=== PATIENT | female | born 1995 | race Caucasian/White ===

== ENCOUNTER 2017-07-20 16:18 | Emergency (ER) | payer OTHER ==
--- NOTE | 2017-07-20 16:31 | PDOC ---
History of Present Illness - General History Source: Patient, Old Records Exam Limitations: No Limitations - History of Present Illness Initial Comments: 07/20/17 16:41 The patient is a 22 year old female with no significant past medical history who presents to the emergency department with stomach pain for 3 days and dysuria for 1 day. The patient states that her stomach pain was associated with one episode of vomiting yesterday. She notes that her dysuria is accompanied by foul smelling urine. She denies any back pain or fever. <Brian Muñoz - Last Filed: 07/20/17 16:41> <Heydi Day - Last Filed: 07/22/17 08:47> - General Chief Complaint: Urinary Problem Stated Complaint: POSSIBLE UTI Time Seen by Provider: 07/20/17 16:21 Past History <Brian Muñoz - Last Filed: 07/20/17 16:41> - Immunization History Immunization Up to Date: Yes - Suicide/Smoking/Psychosocial Hx Smoking History: Current every day smoker Have you smoked in the past 12 months: No Number of Cigarettes Smoked Daily: 1 'Breaking Loose' booklet given: 02/18/16 Hx Alcohol Use: No Drug/Substance Use Hx: No <Heydi Day - Last Filed: 07/22/17 08:47> - Past Medical History Allergies/Adverse Reactions: Allergies Allergy/AdvReac Type Severity Reaction Status Date / Time strawberry Allergy Mild Verified 07/20/17 16:20 apple Allergy Verified 07/20/17 16:20 Home Medications: Ambulatory Orders Cephalexin Monohydrate [Keflex -] 500 mg PO BID #14 capsule 07/20/17 Review of Systems - Review of Systems Able to Perform ROS?: Yes Comments:: 07/20/17 16:41 GENERAL/CONSTITUTIONAL: No fever or chills. No weakness. HEAD, EYES, EARS, NOSE AND THROAT: No change in vision. No ear pain or discharge. No sore throat. GASTROINTESTINAL: (+) Vomiting. No diarrhea or constipation. GENITOURINARY: No dysuria, frequency, or change in urination. CARDIOVASCULAR: No chest pain or shortness of breath. MUSCULOSKELETAL: No joint or muscle swelling or pain. No neck or back pain. SKIN: No rash <Brian Muñoz - Last Filed: 07/20/17 16:41> *Physical Exam - Vital Signs Last Vital Signs Temp Pulse Resp BP Pulse Ox 97.8 F 96 H 16 104/68 98 07/20/17 16:19 07/20/17 16:19 07/20/17 16:19 07/20/17 16:19 07/20/17 16:19 <Brian Muñoz - Last Filed: 07/20/17 16:41> - Physical Exam Comments: GENERAL: Awake, alert, and fully oriented, in no acute distress HEAD: No signs of trauma EYES: PERRLA, EOMI, sclera anicteric, conjunctiva clear ENT: Auricles normal inspection, hearing grossly normal, nares patent, oropharynx clear without exudates. Moist mucosa NECK: Normal ROM, supple, no lymphadenopathy, JVD, or masses LUNGS: Breath sounds equal, clear to auscultation bilaterally. No wheezes, and no crackles HEART: Regular rate and rhythm, normal S1 and S2, no murmurs, rubs or gallops ABDOMEN: Soft, nontender, normoactive bowel sounds. No guarding, no rebound. No masses. No CVAT. EXTREMITIES: Normal range of motion, no edema. No clubbing or cyanosis. No cords, erythema, or tenderness NEUROLOGICAL: Cranial nerves II through XII grossly intact. Normal speech, normal gait SKIN: Warm, Dry, normal turgor, no rashes or lesions noted. <Heydi Day - Last Filed: 07/22/17 08:47> Medical Decision Making - Medical Decision Making Pt treated with keflex. No prior cultures available. Culture pending. Stable for DC home. <Heydi Day - Last Filed: 07/22/17 08:47> *DC/Admit/Observation/Transfer - Attestations Scribe Attestion: 07/20/17 16:41 Documentation prepared by Brian Muñoz, acting as biomedical engineering technician for Heydi Day MD. <Brian Muñoz - Last Filed: 07/20/17 16:41> - Discharge Dispostion Admit: No <Heydi Day - Last Filed: 07/22/17 08:47> Diagnosis at time of Disposition: UTI (urinary tract infection) Qualifiers: Urinary tract infection type: acute cystitis Hematuria presence: without hematuria Qualified Code(s): N30.00 - Acute cystitis without hematuria - Discharge Dispostion Disposition: HOME Condition at time of disposition: Stable - Prescriptions Prescriptions: Cephalexin Monohydrate [Keflex -] 500 mg PO BID #14 capsule - Patient Instructions Printed Discharge Instructions: DI for Urinary Tract Infection (UTI)
[2017-07-20 16:37] VITALS: BP 104/68; PULSE 96; TEMP 97.8; BMI 23.8
[2017-07-20 16:54] LABS: HCG,QUALITATIVE URINE NEGATIVE; PH,URINE 6.5 (4.5-8); URINE APPEARANCE Clear; URINE BILIRUBIN Negative (NEGATIVE); URINE GLUCOSE (UA) Negative (NEGATIVE); URINE KETONE Negative (NEGATIVE); URINE NITRITE Negative (NEGATIVE)
[2017-07-20 16:55] LABS: URINE BLOOD Trace-intact (NEGATIVE); URINE COLOR YELLOW; URINE LEUK ESTERASE TRACE (NEGATIVE); URINE PROTEIN 1+ (NEGATIVE)
[2017-07-20] MEDS ORDERED: CEPHALEXIN MONOHYDRATE 500 MG CAPSULE (UD) PO ONE (17:13)
[2017-07-20] MEDS ORDERED: CEPHALEXIN MONOHYDRATE 500 MG CAPSULE (UD) ONE (17:23)
[2017-07-20 17:30] LABS: URINE WBC 20-40 (0-5)
== END 2017-07-20 17:37 | disposition home or self-care (01) ==
LOC: FER 16:18
DX: N30.00 Acute cystitis without hematuria (principal)
CPT/HCPCS: 81003; 81015; 84703; 87086; 99282-25

== ENCOUNTER 2018-04-19 13:17 | Emergency (ER) | payer OTHER ==
--- NOTE | 2018-04-19 13:32 | PDOC ---
History of Present Illness - General Chief Complaint: Urinary Problem Stated Complaint: UTI? Time Seen by Provider: 04/19/18 13:21 - History of Present Illness Initial Comments: 04/19/18 13:47 Chief complaint: Dysuria, suprapubic discomfort History of present illness: Patient with 2 prior UTIs, most recently 5-6 months ago, similar symptoms. No complications. Resolved with antibiotics. Complains of dysuria, frequency, urgency, suprapubic discomfort for 3 days. Review of systems: No vaginal discharge, itching, or vulvar lesions. On control pills. Last menses 3 weeks ago. No fever/chills, chest pain, shortness of breath, nausea, vomiting, diarrhea, back pain, visual or focal neurologic symptoms. She admits to recent URI which is resolving Past medical history: As noted, uncomplicated UTIs. control pills. Otherwise noncontributory Social/family history reviewed and noncontributory. Monogamous. Physical exam: Alert and oriented well-developed well-nourished no acute distress cheerful and cooperative Afebrile, vital signs normal Abdomen nondistended. Bowel sounds normal. Soft without mass or organomegaly. There is mild tenderness over the bladder in the suprapubic area, without guarding or rebound. There is no CVAT HEENT mild nasal congestion minimal watery nasal discharge. Impression: Probable recurrent UTI, no history of STD and no symptoms suggestive of vaginitis. Plan urinalysis, empiric treatment, and follow-up as needed. Past History - Past Medical History Allergies/Adverse Reactions: Allergies Allergy/AdvReac Type Severity Reaction Status Date / Time strawberry Allergy Mild Verified 07/20/17 16:20 apple Allergy Verified 07/20/17 16:20 Home Medications: Ambulatory Orders Phenazopyridine HCl [Pyridium] 100 - 200 mg PO TID PRN #15 tablet 04/19/18 Sulfamethoxazole/Trimethoprim [Bactrim Ds Tablet] 1 each PO BID #14 tablet 04/19 COPD: No - Immunization History Immunization Up to Date: Yes - Suicide/Smoking/Psychosocial Hx Smoking History: Current every day smoker Have you smoked in the past 12 months: No Number of Cigarettes Smoked Daily: 1 'Breaking Loose' booklet given: 02/18/16 Hx Alcohol Use: No Drug/Substance Use Hx: No Substance Use Type: None Medical Decision Making - Medical Decision Making 04/19/18 14:08 Urinalysis shows sign of UTI, with red and white cells. Empiric antibiotics prescribed. Follow-up recommended. Fully ambulatory and in no significant pain or discomfort upon discharge with friend to follow-up as directed. *DC/Admit/Observation/Transfer Diagnosis at time of Disposition: UTI (urinary tract infection) Qualifiers: Urinary tract infection type: acute cystitis Hematuria presence: with hematuria Qualified Code(s): N30.01 - Acute cystitis with hematuria - Discharge Dispostion Disposition: HOME Condition at time of disposition: Stable Decision to Admit order: No - Prescriptions Prescriptions: Phenazopyridine HCl [Pyridium] 100 - 200 mg PO TID PRN #15 tablet PRN Reason: painful urination/bladder pain Sulfamethoxazole/Trimethoprim [Bactrim Ds Tablet] 1 each PO BID #14 tablet - Referrals - Patient Instructions Printed Discharge Instructions: DI for Urinary Tract Infection (UTI) Additional Instructions: Drink lots of fluids. Cranberry juice good Antibiotic as prescribed. Pyridium for discomfort as needed. This medication may change her urine color to an orange or brown shade. Return to ER if there is fever or severe back pain. Otherwise follow-up with your primary physician or improvement spec in one week. - Post Discharge Activity
[2018-04-19 13:52] LABS: URINE APPEARANCE Turbid; URINE BILIRUBIN 2+ (NEGATIVE); URINE COLOR Red; URINE GLUCOSE (UA) Trace (NEGATIVE); URINE KETONE 1+ (NEGATIVE); URINE LEUK ESTERASE 1+ (NEGATIVE); URINE NITRITE Negative (NEGATIVE); URINE PROTEIN 3+ (NEGATIVE)
[2018-04-19 13:57] VITALS: BP 108/61; PULSE 84; TEMP 98.3; BMI 23.8
[2018-04-19 14:14] LABS: EPI CELLS FEW /HPF; URINE RBC 60-100 /hpf (0-3)
[2018-04-19 14:15] LABS: AMORP URATES NONE SEEN /hpf (NONE SEEN); URINE BACTERIA 1+ /hpf (NEGATIVE)
== END 2018-04-19 14:31 | disposition home or self-care (01) ==
LOC: FER 13:17
DX: R39.15 Urgency of urination (principal); N30.01 Acute cystitis with hematuria; F17.210 Nicotine dependence, cigarettes, uncomplicated
CPT/HCPCS: 81003; 81015; 87086; 87186; 99281-25

== ENCOUNTER 2018-05-13 21:07 | Emergency (ER) | payer OTHER ==
[2018-05-13 21:17] VITALS: BP 117/73; PULSE 87; TEMP 98; BMI 23.8
[2018-05-13 21:42] LABS: PH,URINE 5.5 (4.5-8); URINE APPEARANCE Clear; URINE BILIRUBIN Negative (NEGATIVE); URINE COLOR Yellow; URINE GLUCOSE (UA) Negative (NEGATIVE); URINE KETONE Negative (NEGATIVE); URINE LEUK ESTERASE 1+ (NEGATIVE); URINE NITRITE Negative (NEGATIVE); URINE PROTEIN 1+ (NEGATIVE); URINE UROBILINOGEN 0.2 (0.2-1.0)
[2018-05-13] MEDS ORDERED: PHENAZOPYRIDINE HCL 100 MG TABLET (FP) PO ONE (22:08)
[2018-05-13] MEDS ORDERED: NITROFURANTOIN MACROCRYSTAL 50 MG CAPSULE (FP) ONE (22:11)
[2018-05-13] MEDS ORDERED: PHENAZOPYRIDINE HCL 100 MG TABLET (FP) ONE (22:11)
--- NOTE | 2018-05-13 22:12 | PDOC ---
History of Present Illness - General Chief Complaint: Urinary Problem Stated Complaint: URINARY TRACT INFECTION Time Seen by Provider: 05/13/18 21:10 History Source: Patient Exam Limitations: No Limitations - History of Present Illness Initial Comments: 05/13/18 22:17 The patient is a 23 year old female presenting with her boyfriend, with a significant past medical history of recurrent UTI with Last ED visit (E.coli oliveros sensitive on 04/19/18)(3 total in 2018), who presents to the ED complaining of abdominal pain, dysuria, frequency, hematuria and urgency onset today. She describes her abdominal pain as localized in the lower abdomen/suprapubic region , ranging from mild to moderate, without radiation or modifying factors. She reports that she is currently taking oral contraceptives. The patient was seen in the ED on 04/19/18 for similar symptoms and discharged same day after improvement of symptoms on pyridium and bactrim. She denies any vaginal discharge or foul smell. expecting menses next week. The patient denies chest pain, shortness of breath, headache and dizziness. Denies fever, chills, nausea, vomiting, diarrhea or constipation. LMP: Supposed to come next week (Usually regular) Allergies: Andrews, Apple Past surgical history: None reported Social History: Smoker (1 daily). No alcohol or drug use reported. monogamous with boyfriend. Family History: Mother; Diabetes ROS: Constitutional: no fevers or chills. HEENT: no headache or dizziness. No congestion. No visual/hearing disturbances. CVS: no cp or syncope. Resp: no sob. No cough. Gastrointestinal: (+) Abdominal pain. no nausea or vomiting. Genitourinary: (+) dysuria, frequency, hematuria and urgency. no VB or discharge or malodor. MUSCULOSKELETAL: No joint pain and swelling. No neck or back pain. SKIN: no redness or skin changes, no discharge, no rash. No wounds. Hematologic: no easy bruising/bleeding. NEUROLOGIC: No headache, dizziness, LOC or altered mental status. Allergic/Immunologic: no allergies All other systems reviewed and negative, or as documented in HPI. PE: General: Well appearing, awake and alert, NAD. HEENT: NCAT, PERRL, EOMI, clear conjunctiva, anicteric, moist mucus membranes, clear oropharynx, no oral lesions.. Neck: neck supple, FROM Resp: CTAB, normal and even respirations, no respiratory distress CVS: RRR, no murmurs, 2+ peripheral pulses throughout, no peripheral edema Abdomen: (+) Suprapubic tenderness. soft, no rebound or guarding. No CVAT. Back: nontender, normal inspection and ROM MSK: no edema, HERNANDEZ x4, ROM intact. No clubbing or cyanosis. normal bulk and tone. Extremities: no calf tenderness Neuro: alert Skin: warm and well perfused, cap refill <2 sec, normal color 05/13/18 22:19 Past History - Past Medical History Allergies/Adverse Reactions: Allergies Allergy/AdvReac Type Severity Reaction Status Date / Time strawberry Allergy Mild Verified 05/13/18 21:08 apple Allergy Verified 05/13/18 21:08 Home Medications: Ambulatory Orders Levonorgestrel-Ethin Estradiol [Lessina] 1 each PO DAILY 05/13/18 Nitrofurantoin Monohyd/M-Cryst [Macrobid -] 100 mg PO BID 5 Days #10 capsule 06/30 Phenazopyridine HCl [Pyridium -] 100 mg PO BID #6 tablet 05/13/18 COPD: No - Reproductive History Is Patient Now?: No - Immunization History Immunization Up to Date: Yes - Suicide/Smoking/Psychosocial Hx Smoking History: Never smoked Have you smoked in the past 12 months: No Number of Cigarettes Smoked Daily: 1 Information on smoking cessation initiated: No 'Breaking Loose' booklet given: 02/18/16 Hx Alcohol Use: No Drug/Substance Use Hx: No Substance Use Type: None *Physical Exam - Vital Signs Last Vital Signs Temp Pulse Resp BP Pulse Ox 98 F 87 20 117/73 99 05/13/18 21:07 05/13/18 21:07 05/13/18 21:07 05/13/18 21:07 05/13/18 21:07 Moderate Sedation - Procedure Monitoring Vital Signs: Procedure Monitoring Vital Signs Temperature 98 F 05/13/18 21:07 Pulse Rate 87 05/13/18 21:07 Respiratory Rate 20 05/13/18 21:07 Blood Pressure 117/73 05/13/18 21:07 O2 Sat by Pulse Oximetry (%) 99 05/13/18 21:07 ED Treatment Course - ADDITIONAL ORDERS Additional order review: Laboratory Results 05/13/18 05/13/18 21:35 21:35 Urine Color Yellow Urine Appearance Clear Urine pH 5.5 Ur Specific [place] >= 1.030 Urine Protein 1+ H D Urine Glucose (UA) Negative Urine Ketones Negative Urine Blood Trace-intact H Urine Nitrite Negative Urine Bilirubin Negative Urine Urobilinogen 0.2 Ur Leukocyte Esterase 1+ H Urine HCG, Qual Negative Medical Decision Making - Medical Decision Making 05/13/18 22:20 hpi as documented, VS wnl, no fever UA +blood and WBCs, correlating with acute UTI. neg rx macrobid, pyridium for dysuria. prior urine cultures reviewed, oliveros sensitive E. coli. pt elects for macrobid, for uncomplicated cystitis. instructions on hydration, cranberry juice, good hygiene, avoid triggers and douching. sexual activity and female gender/short tract can be precipitants [facility] referrals given for recurrent UTI. DC in stable condition, return precautions given, s/s infection *DC/Admit/Observation/Transfer Diagnosis at time of Disposition: UTI (urinary tract infection) Qualifiers: Urinary tract infection type: acute cystitis Hematuria presence: with hematuria Qualified Code(s): N30.01 - Acute cystitis with hematuria - Discharge Dispostion Disposition: HOME Condition at time of disposition: Good Decision to Admit order: No - Prescriptions Prescriptions: Nitrofurantoin Monohyd/M-Cryst [Macrobid -] 100 mg PO BID 5 Days #10 capsule Phenazopyridine HCl [Pyridium -] 100 mg PO BID #6 tablet - Referrals Referrals: Giovana Gresham MD [Certified Nurse [employer] Interface Developer] - Juanito Abdi MD [Staff Physician] - Shravan Davila MD [Staff Physician] - Jessica Madrigal MD [Staff Physician] - [facility] [Provider Group] Rut Greer MD [Staff Physician] - - Patient Instructions Printed Discharge Instructions: DI for Urinary Tract Infection (UTI) Additional Instructions: you have a urinary tract infection today based on your urine testing. prior results revealed E. coli, which is a natural bree in your vagina. Drink lots of fluids. Cranberry juice good Antibiotic as prescribed. Macrobid twice a day x 5 days. Pyridium for discomfort as needed. This medication may change her urine color to an orange or brown shade. Return to ER if there is fever or severe back pain, nausea, vomiting or diarrhea or inability to tolerate oral intake. Otherwise follow-up with your primary physician or general ii farmworker in one week. - Post Discharge Activity
[2018-05-13] MEDS ORDERED: NITROFURANTOIN MACROCRYSTAL 50 MG CAPSULE (FP) PO SCH (22:15)
[2018-05-13 22:29] LABS: EPI CELLS FEW /HPF; URINE BACTERIA 3+ /hpf (NEGATIVE); URINE WBC 40-60 (0-5)
== END 2018-05-13 22:19 | disposition home or self-care (01) ==
LOC: FER 21:07
DX: N30.01 Acute cystitis with hematuria (principal); Z72.0 Tobacco use
CPT/HCPCS: 81003; 81015; 84703; 87086; 99282-25

== ENCOUNTER 2019-04-25 20:32 | Emergency (ER) | payer OTHER ==
[2019-04-25 20:52] VITALS: BP 94/74; PULSE 93; TEMP 99.2; BMI 24.7
[2019-04-25] MEDS ORDERED: diphenhydrAMINE HCL 50 MG CAPSULE PO ONE (21:10)
[2019-04-25] MEDS ORDERED: diphenhydrAMINE HCL 50 MG CAPSULE ONE (21:36)
--- NOTE | 2019-04-25 21:36 | PDOC ---
Documentation entered by Tiffanie Jordan SCRIBE, acting as scribe for Mike Benton MD. Mike Benton MD: This documentation has been prepared by the Julian cruz Sammi, SCRIBE, under my direction and personally reviewed by me in its entirety. I confirm that the documentation accurately reflects all work, treatment, procedures, and medical decision making performed by me. History of Present Illness - General Chief Complaint: Pain, Acute Stated Complaint: itching all over x 2 days, pain in hands - History of Present Illness Initial Comments: 04/25/19 21:06 The patient is a 23 year old female who presents to the ED for evaluation fo 3 days of a diffuse rash and itching, concentrated on her chest and upper extremities. She also complains of pain to her palms and soles of her feet. The patient notes she has been taking nitrofurantoin for a UTI. Denies new soaps, creams, or lotions. Past History - Past Medical History Allergies/Adverse Reactions: Allergies Allergy/AdvReac Type Severity Reaction Status Date / Time strawberry Allergy Mild Verified 04/25/19 20:34 apple Allergy Verified 04/25/19 20:34 Home Medications: Ambulatory Orders Levonorgestrel-Ethin Estradiol [Lessina] 1 each PO DAILY 05/13/18 Diphenhydramine [Benadryl -] 50 mg PO QID #12 capsule 04/25/19 COPD: No - Immunization History Immunization Up to Date: Yes - Psycho Social/Smoking Cessation Hx Smoking History: Never smoked Have you smoked in the past 12 months: No Number of Cigarettes Smoked Daily: 1 'Breaking Loose' booklet given: 02/18/16 Hx Alcohol Use: No Drug/Substance Use Hx: No Substance Use Type: None Review of Systems - Review of Systems Comments:: 04/25/19 21:07 GENERAL/CONSTITUTIONAL: No fever or chills. No weakness. HEAD, EYES, EARS, NOSE AND THROAT: No change in vision. No ear pain or discharge. No sore throat. CARDIOVASCULAR: No chest pain or shortness of breath. RESPIRATORY: No cough, wheezing, or hemoptysis. GASTROINTESTINAL: No nausea, vomiting, diarrhea or constipation. GENITOURINARY: No dysuria, frequency, or change in urination. MUSCULOSKELETAL: No joint or muscle swelling or pain. No neck or back pain. ALLERGIC/IMMUNOLOGIC: +diffuse rash, concentrated to chest and upper extremities *Physical Exam - Vital Signs Last Vital Signs Temp Pulse Resp BP Pulse Ox 99.2 F 93 H 16 94/74 100 04/25/19 20:35 04/25/19 20:35 04/25/19 20:35 04/25/19 20:35 04/25/19 20:35 - Physical Exam 04/25/19 21:06 GENERAL: Awake, alert, and fully oriented, in no acute distress EYES: PERRLA, EOMI, sclera anicteric, conjunctiva clear LUNGS: Breath sounds equal, clear to auscultation bilaterally. No wheezes, and no crackles HEART: Regular rate and rhythm, normal S1 and S2, no murmurs, rubs or gallops ABDOMEN: Soft, nontender, normoactive bowel sounds. No guarding, no rebound. No masses EXTREMITIES: Normal range of motion, no edema. No clubbing or cyanosis. No cords, erythema, or tenderness SKIN: +scattered papules and indurations Medical Decision Making - Medical Decision Making 04/26/19 06:35 itching with minimal rash ? medication reaction benadryl Discharge - Discharge Information Problems reviewed: Yes Clinical Impression/Diagnosis: Rash Condition: Stable Disposition: HOME - Admission No - Additional Discharge Information Prescriptions: Diphenhydramine [Benadryl -] 50 mg PO QID #12 capsule - Follow up/Referral - Patient Discharge Instructions Patient Printed Discharge Instructions: DI for Adverse Drug Reaction -- Allergic - Post Discharge Activity
== END 2019-04-25 21:41 | disposition home or self-care (01) ==
LOC: FER 20:32
DX: Z72.0 Tobacco use (principal)
CPT/HCPCS: 99281-25

== ENCOUNTER 2020-07-17 21:45 | Emergency (ER) | payer OTHER ==
[2020-07-17 21:52] VITALS: BP 136/84; PULSE 113; TEMP 99; BMI 24.7
[2020-07-17 22:33] LABS: EPITHELIAL CELLS FEW /hpf
[2020-07-17] MEDS ORDERED: CIPROFLOXACIN 500 MG TABLET (RESTRICTED TO ID) PO ONE (22:45)
[2020-07-17] MEDS ORDERED: CIPROFLOXACIN 250 MG TABLET (RESTRICTED TO ID) PO ONE (22:50)
== END 2020-07-17 22:57 | disposition home or self-care (01) ==
LOC: FER 21:45
DX: N30.00 Acute cystitis without hematuria (principal)
CPT/HCPCS: 81003; 81015; 84703; 87077; 87086; 99284-25

== ENCOUNTER 2020-10-12 21:47 | Emergency (ER) | payer OTHER ==
[2020-10-12 21:54] VITALS: BP 126/78; PULSE 114; TEMP 98.9; BMI 23.8
[2020-10-12] MEDS ORDERED: ACETAMINOPHEN 325 MG TABLET (FP) PO ONE (22:00)
[2020-10-12 22:10] LABS: HCG,QUALITATIVE URINE Negative
[2020-10-12] MEDS ORDERED: ACETAMINOPHEN 325 MG TABLET (FP) ONE (22:10)
[2020-10-12 22:35] LABS: BASO % 0.9 % (0-2.0); EOS % 0.9 % (0-4.5); HEMATOCRIT 37.4 % (32.4-45.2); HEMOGLOBIN 12.6 GM/dl (10.7-15.3); LYMPH % 23.3 % (8-40); MCHC 33.8 g/dl (32.0-36.0); MEAN CELL VOLUME 88.9 fl (80-96); MEAN PLT VOLUME 10.6 fl (7.5-11.1); MONO % 6.8 % (3.8-10.2); NEUT % 68.1 % (42.8-82.8); PLATELET COUNT 152 K/MM3 (134-434); RBC 4.21 M/mm3 (3.60-5.2); RDW 13.4 % (11.6-15.6)
[2020-10-12 22:45] LABS: ALBUMIN 4.1 g/dl (3.4-5.0); BILIRUBIN,TOTAL 0.9 mg/dl (0.2-1); CALCIUM 8.4 mg/dl (8.5-10); CREATININE 0.6 mg/dl (0.55-1.3); TOT PROT 6.7 g/dl (6.4-8.2)
== END 2020-10-13 00:02 | disposition home or self-care (01) ==
LOC: FER 21:47
DX: N83.202 Unspecified ovarian cyst, left side (principal)
CPT/HCPCS: 36415; 76830-TC; 80053; 81003; 84703; 85025; 87086; 99284-25

== ENCOUNTER 2020-12-27 18:39 | Emergency (ER) | payer OTHER ==
[2020-12-27 18:52] VITALS: BP 112/70; PULSE 107; TEMP 98.2; BMI 20.1
[2020-12-27 19:22] LABS: HCG,QUALITATIVE URINE Negative
[2020-12-27 19:23] LABS: EPITHELIAL CELLS FEW /hpf
== END 2020-12-27 20:01 | disposition home or self-care (01) ==
LOC: FER 18:39
DX: N30.00 Acute cystitis without hematuria (principal)
CPT/HCPCS: 81003; 81015; 84703; 87086; 87186; 99283-25